=== PATIENT | female | born 1985 | race Caucasian/White ===

== ENCOUNTER 2018-07-09 06:49 | Day surgery (SDC) | payer OTHER ==
[2018-07-09 07:54] LABS: ADD MAN DIFF? NO
[2018-07-09] MEDS: SOD CHLORIDE 0.9% 1,000 ML IV (07:56)
[2018-07-09 07:58] LABS: WHITE BLOOD COUNT 8.2 10^3/ul (4.8-10.8)
[2018-07-09 07:58] LABS: BASOPHIL # 0.1 10^3/ul (0.0-0.1); EOSINOPHILS # 0.1 10^3/ul (0.0-0.5); EOSINOPHILS % 1.6 % (0.0-7.0); HEMOGLOBIN 14.4 g/dl (12.0-16.0); LYMPHOCYTES # 2.7 10^3/ul (0.8-2.9); LYMPHOCYTES % 32.4 % (15.0-51.0); MEAN CORPUSCULAR HGB CONC 32.7 g/dl (32.0-37.0); MEAN CORPUSCULAR VOLUME 88.7 fl (82.0-101.0); MONOCYTE # 0.5 10^3/ul (0.3-0.9); MONOCYTES % 5.5 % (0.0-11.0); NEUTROPHIL # 4.9 10^3/ul (1.6-7.5); NEUTROPHILS % 59.4 % (39.0-77.0); PLATELET COUNT 335 10^3/UL (140-415); RED BLOOD COUNT 4.96 10^6/ul (4.20-5.40); RED CELL DISTRIBUTION WIDTH 13.8 % (11.5-14.5)
[2018-07-09] MEDS: CEFAZOLIN 2 GM/50 ML (PMX) 50 ML IVPB (08:00)
[2018-07-09 08:17] LABS: INR 0.92; PROTIME 12.4 Sec (11.9-14.9)
[2018-07-09 08:21] LABS: ALANINE AMINOTRANSFERASE 54 IU/L (13-69); ALBUMIN 4.9 g/dl (3.3-4.9); ALBUMIN/GLOBULIN RATIO 1.25; ALKALINE PHOSPHATASE 82 IU/L (42-121); ANION GAP 11 (5-13); ASPARTATE AMINO TRANSFERASE 38 IU/L (15-46); BILIRUBIN,INDIRECT 0.5 mg/dl (0-1.1); BILIRUBIN,TOTAL 0.5 mg/dl (0.2-1.3); BLOOD UREA NITROGEN 10 mg/dl (7-20); CALCIUM 9.8 mg/dl (8.4-10.2); CARBON DIOXIDE 23 mmol/L (21-31); CHLORIDE 108 mmol/L (97-110); CREATININE 0.62 mg/dl (0.44-1.00); Estimated GFR > 60 mL/min (>60); GLUCOSE 98 mg/dl (70-220); SODIUM 142 mmol/L (135-144); TOTAL PROTEIN 8.8 g/dl (6.1-8.1)
[2018-07-09 08:40] LABS: PARTIAL THROMBOPLASTIN TIME 35.8 Sec (23.0-35.0)
[2018-07-09] MEDS ORDERED: FENTAnyl 50 MCG/ML VIAL (10:06)
[2018-07-09] MEDS ORDERED: MIDAZOLAM 1 MG/ML 2 ML INJ (10:06)
[2018-07-09] MEDS ORDERED: LIDOCAINE 2% (SDV) 5 ML INJ (10:17)
[2018-07-09] MEDS ORDERED: PROPOFOL 20 ML (10:17)
[2018-07-09] MEDS ORDERED: CEFAZOLIN 1 GM INJ (10:17)
[2018-07-09] MEDS ORDERED: ONDANSETRON 4 MG INJ (10:18)
[2018-07-09] MEDS ORDERED: DEXAMETHASONE 4 MG/ML 1 ML INJ (10:18)
[2018-07-09] MEDS ORDERED: HYDROmorphONE 1 MG/5 ML IV SYRINGE IV (10:30)
[2018-07-09] MEDS ORDERED: FENTAnyl 50 MCG/ML VIAL IV (10:30)
[2018-07-09] MEDS ORDERED: DIPHENHYDRAMINE 50 MG INJ IV (10:30)
[2018-07-09] MEDS ORDERED: PROCHLORPERAZINE 10 MG INJ IV (10:30)
[2018-07-09] MEDS: BUPIVACAINE 0.25% (MPF) 30 ML INJ (10:58)
[2018-07-09] MEDS ORDERED: HYDROCODONE/APAP (5/325) TAB PO (11:30)
[2018-07-09] MEDS: MEPERIDINE 25 MG INJ IV (11:34)
[2018-07-09] MEDS: ONDANSETRON 4 MG INJ IV (11:35)
[2018-07-09] MEDS: HYDROmorphONE 1 MG/5 ML IV SYRINGE IV ×3 (11:38→11:51)
[2018-07-09] MEDS: OXYCODONE/ACETAMINOPHEN (5/325) TAB PO (11:57)
== END 2018-07-09 12:55 | disposition home or self-care (01) ==
LOC: SDS 06:49
DX: R22.2 Localized swelling, mass and lump, trunk (principal)
CPT/HCPCS: 14301; 80053; 85025; 85610; 85730; 88307